=== PATIENT | female | born 1975 ===

== ENCOUNTER 2018-10-10 07:53 | Emergency (ER) ==
--- NOTE | 2018-10-10 08:02 | ER ---
Nurse's Notes [facility] Name: Monae Benavidez Age: 42 yrs Sex: Female : 1975 Arrival Date: 10/10/2018 Time: 07:54 Bed 17 Private MD: Diagnosis: Schizophrenia, unspecified Presentation: 10/10 07:55 Presenting complaint: EMS states: pt complains of having heard voices this morning, sg reports that she wants to get help to get rid of the voices in her head. pt denies having suicidal or homicidal tendencies at this time, pt reports " I just want to go home. I dont need to be here.". Transition of care: patient was not received from another setting of care. Onset of symptoms was October 10, 2018. Risk Assessment: Do you want to hurt yourself or someone else? Patient reports no desire to harm self or others. Initial Sepsis Screen: Does the patient meet any 2 criteria? No. Patient's initial sepsis screen is negative. Does the patient have a suspected source of infection? No. Patient's initial sepsis screen is negative. Care prior to arrival: None. 07:55 Method Of Arrival: Ambulatory sg 07:55 Acuity: BING 4 sg Historical: - Allergies: 07:55 No Known Allergies; sg - PMHx: 07:55 Schizophrenia; sg - PSHx: 07:55 None; sg - Immunization history:: Adult Immunizations up to date. - Social history:: Smoking status: Patient/guardian denies using tobacco. - Ebola Screening: : Patient negative for fever greater than or equal to 101.5 degrees Fahrenheit, and additional compatible Ebola Virus Disease symptoms Patient denies exposure to infectious person Patient denies travel to an Ebola-affected area in the 21 days before illness onset No symptoms or risks identified at this time. Assessment: 07:58 Reassessment: pt refusing treatment at this time, reports " Im fine, I just want to sg call my friend to come get me and Ill go home." pt denies having suicidal/homicidal thoughts or attempts at this time. will continue to monitor. Vital Signs: 07:50 BP 142 / 77; Pulse 87; Resp 16; Temp 97.2; Pulse Ox 100% on R/A; sg ED Course: 07:54 Patient arrived in ED. sg 07:54 Charles Fiore NP is PHCP. pm1 07:54 Natanael Ramos MD is Attending Physician. pm1 07:57 Triage completed. sg 07:58 Arm band placed on. sg 08:04 All Mcgee, RN is Primary Nurse. sg Administered Medications: No medications were administered Outcome: 08:00 Eloped from patient exam room, after seeing physician sg 08:00 Condition: stable 08:02 Discharge ordered by . pm1 08:05 Patient left the ED. sg Signatures: All Mcgee RN RN Charles Fiore NP INVOICE CHECKER pm1
--- NOTE | 2018-10-10 08:03 | EDPHYS ---
Physician Documentation [facility] Name: Monae Benavidez Age: 42 yrs Sex: Female : 1975 Arrival Date: 10/10/2018 Time: 07:54 Bed 17 Private MD: ED Physician Natanael Ramos HPI: 10/10 07:59 This 42 yrs old Female presents to ER via Ambulatory with complaints of Hearing voices. pm1 07:59 Past psychiatric history: Prior diagnosis: schizophrenia, Psychiatric medications pm1 include: none, Primary psychiatric physician: the patient does not have a primary psychiatric physician. Associated signs and symptoms: Pertinent positives; hallucinations, Pertinent negatives: abdominal pain, chest pain, headache, homicidal ideation, shortness of breath, suicide ideation. Severity of symptoms: Pain is currently a 0 / 10. The patient has experienced similar episodes in the past, chronically. The patient has not recently seen a physician. Patient reports hearing voices. Denies homicidal and suicidal ideation. Patient does not want to take medications for her schizophrenia. Historical: - Allergies: 07:55 No Known Allergies; sg - PMHx: 07:55 Schizophrenia; sg - PSHx: 07:55 None; sg - Immunization history:: Adult Immunizations up to date. - Social history:: Smoking status: Patient/guardian denies using tobacco. - Ebola Screening: : Patient negative for fever greater than or equal to 101.5 degrees Fahrenheit, and additional compatible Ebola Virus Disease symptoms Patient denies exposure to infectious person Patient denies travel to an Ebola-affected area in the 21 days before illness onset No symptoms or risks identified at this time. ROS: 07:59 Constitutional: Negative for fever, chills, and weight loss, Eyes: Negative for injury, pm1 pain, redness, and discharge, ENT: Negative for injury, pain, and discharge, Neck: Negative for injury, pain, and swelling, Cardiovascular: Negative for chest pain, palpitations, and edema, Respiratory: Negative for shortness of breath, cough, wheezing, and pleuritic chest pain, Abdomen/GI: Negative for abdominal pain, nausea, vomiting, diarrhea, and constipation, Back: Negative for injury and pain, : Negative for injury, bleeding, discharge, and swelling, MS/Extremity: Negative for injury and deformity, Skin: Negative for injury, rash, and discoloration. 07:59 Psych: Positive for auditory hallucinations, Negative for homicidal ideation, suicide gesture, suicidal ideation. Exam: 07:59 Constitutional: This is a well developed, well nourished patient who is awake, alert, pm1 and in no acute distress. Head/Face: Normocephalic, atraumatic. Eyes: Pupils equal round and reactive to light, extra-ocular motions intact. Lids and lashes normal. Conjunctiva and sclera are non-icteric and not injected. Cornea within normal limits. Periorbital areas with no swelling, redness, or edema. ENT: Nares patent. No nasal discharge, no septal abnormalities noted. Tympanic membranes are normal and external auditory canals are clear. Oropharynx with no redness, swelling, or masses, exudates, or evidence of obstruction, uvula midline. Mucous membranes moist. Neck: Trachea midline, no thyromegaly or masses palpated, and no cervical lymphadenopathy. Supple, full range of motion without nuchal rigidity, or vertebral point tenderness. No Meningismus. Chest/axilla: Normal chest wall appearance and motion. Nontender with no deformity. No lesions are appreciated. Cardiovascular: Regular rate and rhythm with a normal S1 and S2. No gallops, murmurs, or rubs. No pulse deficits. Respiratory: Lungs have equal breath sounds bilaterally, clear to auscultation and percussion. No rales, rhonchi or wheezes noted. No increased work of breathing, no retractions or nasal flaring. Abdomen/GI: Soft, non-tender, with normal bowel sounds. No distension or tympany. No guarding or rebound. No evidence of tenderness throughout. Back: No spinal tenderness. No costovertebral tenderness. Full range of motion. Skin: Warm, dry with normal turgor. Normal color with no rashes, no lesions, and no evidence of cellulitis. MS/ Extremity: Pulses equal, no cyanosis. Neurovascular intact. Full, normal range of motion. 07:59 Neuro: Orientation: is normal, Motor: is normal, moves all fours, Sensation: is normal, no obvious gross deficits, Gait: is steady, at a normal pace, without difficulty. Vital Signs: 07:50 BP 142 / 77; Pulse 87; Resp 16; Temp 97.2; Pulse Ox 100% on R/A; sg MDM: 07:58 Patient medically screened. pm1 07:59 Data reviewed: vital signs. Data interpreted: Pulse oximetry: on room air is 100 %. pm1 Interpretation: normal. 07:59 Refusal of service: The patient/guardian displays adequate decision making capability pm1 and despite a detailed discussion of alternatives, benefits, risks, and consequences refuses: all lab tests, Patient does not want to be treated. She just wants to use the phone to call her friend to pick her up to go home. 07:59 ED course: Patient is not homicidal or suicidal therefore patient may go home to follow pm1 up with a PCP or psychiatrist. Administered Medications: No medications were administered Disposition: 10/10/18 08:02 Discharged to Home. Impression: Schizophrenia, unspecified. - Condition is Stable. - Discharge Instructions: Schizophrenia. - Medication Reconciliation Form, Thank You Letter, Antibiotic Education, Prescription Opioid Use form. - Follow up: Emergency Department; When: As needed; Reason: Worsening of condition. Follow up: Private Physician; When: 2 - 3 days; Reason: Recheck today's complaints, Continuance of care, Re-evaluation by your physician. - Problem is an ongoing problem. - Symptoms are unchanged. Addendum: 10/11/2018 18:16 Co-signature as Attending Physician, Natanael Ramos MD. g s Signatures: All Mcgee RN RN sg Charles Fiore, [employer]ICE [employer]IVER pm1 Natanael Ramos MD MD Corrections: (The following items were deleted from the chart) 10/10 08:05 08:02 10/10/2018 08:02 Discharged to Home. Impression: Schizophrenia, unspecified. sg Condition is Stable. Forms are Medication Reconciliation Form, Thank You Letter, Antibiotic Education, Prescription Opioid Use. Follow up: Emergency Department; When: As needed; Reason: Worsening of condition. Follow up: Private Physician; When: 2 - 3 days; Reason: Recheck today's complaints, Continuance of care, Re-evaluation by your physician. Problem is an ongoing problem. Symptoms are unchanged. pm1
== END 2018-10-10 08:05 | disposition home or self-care (01) ==
LOC: ER 07:53
DX: F20.9 Schizophrenia, unspecified (principal)
CPT/HCPCS: 99281